=== PATIENT | female | born 1930 | race Caucasian/White ===

== ENCOUNTER 2017-06-11 13:15 | Emergency (ER) | payer MEDICARE, OTHER ==
[~2017-06-11] VITALS: Ht 157.5 cm; Wt 82.0 kg
[2017-06-11 13:20] VITALS: BP 151/79; PULSE 72; RESP 16; TEMP 97.7; O2SAT 98
[2017-06-11] MEDS ORDERED: ASPI-516 CHEW (13:59)
[2017-06-11] MEDS ORDERED: MECL-62 PO (13:59)
[2017-06-11] MEDS ORDERED: LOSA100T PO (13:59)
[2017-06-11] MEDS ORDERED: ATOR20TA15 PO (13:59)
[2017-06-11] MEDS ORDERED: CLON0.5T PO (13:59)
[2017-06-11] MEDS ORDERED: CYCL10TA PO (15:07)
[2017-06-11] MEDS ORDERED: MELO15TA20 PO (15:07)
--- NOTE | 2017-06-11 15:07 | PD ---
HPI Chief Complaint: Musculoskeletal Complaint Time Seen by Provider: 14:18 Travel History International Travel<30 days: No Contact w/Intl Traveler<30days: No Traveled to known affect area: No History of Present Illness HPI 86-year-old female here with left upper back pain and left arm pain 2 days. She reports the pain as throbbing spasm. She has had similar pain in the past. She believes this is a muscle spasm. She denies chest pain, palpitations, shortness of breath, nausea, vomiting, diaphoresis. Pain is reproduced by movement of the arm and palpation of the soft tissue of the arm. Pain is slightly relieved with rest. PFSH Past Medical History Hx Anticoagulant Therapy: Yes (asa 81mg) Cardiovascular Problems: Yes (htn on meds) High Cholesterol: Yes Hypertension: Yes Influenza Vaccination: No ?: Not Past Surgical History Hysterectomy: Yes Social History Alcohol Use: No Tobacco Use: No Substance Use: No Allergies-Medications (Allergen,Severity, Reaction): Coded Allergies: No Known Allergies (Unverified , 06/11/17) Reported Meds & Prescriptions Reported Meds & Active Scripts Active Reported Meclizine (Meclizine HCl) 25 Mg Tab 25 Mg PO DIRECTED PRN Aspirin 81 Mg Chew 81 Mg CHEW DAILY Clonazepam 0.5 Mg Tab 0.5 Mg PO HS Losartan (Losartan Potassium) 100 Mg Tab 100 Mg PO DAILY Atorvastatin (Atorvastatin Calcium) 20 Mg Tab 20 Mg PO HS Review of Systems Except as stated in HPI: all other systems reviewed are Neg General / Constitutional: No: Fever Cardiovascular: No: Chest Pain or Discomfort Respiratory: No: Shortness of Breath Gastrointestinal: No: Abdominal Pain Physical Exam Narrative GENERAL: Alert well-appearing female. Laughing with family member in room. No distress. SKIN: Warm and dry. HEAD: Normocephalic. EYES: No scleral icterus. No injection or drainage. NECK: Supple, trachea midline. No JVD or lymphadenopathy. Tenderness over the left trapezius muscle CARDIOVASCULAR: Regular rate and rhythm without murmurs, gallops, or rubs. RESPIRATORY: Breath sounds equal bilaterally. No accessory muscle use. GASTROINTESTINAL: Abdomen soft, non-tender, nondistended. MUSCULOSKELETAL: No cyanosis, or edema. Upper extremity :Tenderness to light palpation from the left trapezius muscle to the left biceps. Left arm pain reproduced with forward extension and external rotation of the shoulder. 2+ brachial and radial pulse. Normal sensation. Brisk cap refill. BACK: without obvious deformity. No CVA tenderness. Data Data Last Documented VS Vital Signs Date Time Temp Pulse Resp B/P (MAP) Pulse Ox O2 Delivery O2 Flow Rate FiO2 06/11/17 13:20 97.7 72 16 151/79 (103) 98 MDM Medical Decision Making Medical Screen Exam Complete: Yes Emergency Medical Condition: Yes Differential Diagnosis Cervical radiculopathy, trapezius muscle spasm, tenderness, ACS Narrative Course 86-year-old female here with nontraumatic and left upper extremity pain. On exam she has tenderness of the left trapezius muscle down to the left bicep. Muscle spasm is present. No cervical midline tenderness. Patient denies chest pain, palpitations, nausea vomiting. I do not suspect that this is cardiac in nature. The pain is reproducible to palpation and movement of the left upper extremity. She has had this pain before. Diagnosis Primary Impression: Trapezius muscle spasm Referrals: Primary Care Physician Additional Instructions: Take the medication as prescribed. Follow-up with her primary doctor. Return if he developed new or worsening symptoms. Scripts Cyclobenzaprine (Flexeril) 10 Mg Tab 10 MG PO TID for Muscle Spasm, #15 TAB 0 Refills Prov: Cynthia White 06/11/17 Meloxicam (Meloxicam) 15 Mg Tab 15 MG PO DAILY for Arthritis Pain, #15 TAB 0 Refills Prov: Cynthia White 06/11/17 Disposition: 01 DISCHARGE HOME Condition: Stable Cynthia White Jun 11, 2017 15:07
[2017-06-11] MEDS ORDERED: KETOROLAC TROMETHAMINE 60 MG/2 ML (IM) VIAL IM ONE (15:15)
== END 2017-06-11 15:34 | disposition home or self-care (01) ==
LOC: PHEFT 13:15
DX: M62.838 Other muscle spasm (principal); I10 Essential (primary) hypertension; E78.00 Pure hypercholesterolemia, unspecified; Z79.82 Long term (current) use of aspirin; Z79.899 Other long term (current) drug therapy
CPT/HCPCS: 96372; 99284; J1885